=== PATIENT | male | born 1960 | race Caucasian/White ===

== ENCOUNTER 2021-05-01 09:15 | Emergency (ER) | payer OTHER ==
[~2021-05-01] VITALS: Ht 165.1 cm; Wt 88.5 kg
[2021-05-01 09:15] VITALS: BP_SYST 123
--- NOTE | 2021-05-01 09:15 | NUR ---
BROUGHT BACK TO BED #8 AND TRIAGED. REPORT GIVEN TO MONIK
--- NOTE | 2021-05-01 09:17 | NUR ---
ER DR. ISLAS AT THE BEDSIDE EXAMINING PT
--- NOTE | 2021-05-01 09:20 | NUR ---
PT BIB DAUGHTER FROM HOME C/O SOB SINCE YESTERDAY. REPORTS HX OF CHF, A-FIB, DM. STATES HE HAS BEEN USING AN RX INHALER AT HOME BUT STILL FEELS SOB. PT PRESENTS BREATHING AT A NORMAL RATE, UNLABORED, DENIES COUGH. PULSE FLUXUATING BETWEEM 98-125 BPM. OTHER V/S STABLE. PT IS AAOX4, AMBULATORY
[2021-05-01] MEDS ORDERED: DILTIAZEM HCL 25 MG/5 ML VIAL IVP ONE (09:30)
[2021-05-01] MEDS ORDERED: DILTIAZEM HCL 60 MG TABLET PO ONE (09:30)
--- NOTE | 2021-05-01 09:40 | NUR ---
# 20 gauge angiocath placed to L WRIST. Use of asceptic technique. Opsite placed over site. Blood return noted. Flushed with 10 cc of normal saline. No evidence of infiltration noted. Patient tolerated well.
[2021-05-01 10:15] LABS: BASOPHILS % (AUTO) 0.5 % (0.0-2.0); EOSINOPHILS # (AUTO) 0.2 K/uL (0.0-0.4); EOSINOPHILS % (AUTO) 2.8 % (0.0-4.0); HEMATOCRIT 48.9 % (36-54); HEMOGLOBIN 16.8 g/dL (14.0-18.0); LYMPHOCYTES # (AUTO) 2.5 K/uL (1.0-5.5); LYMPHOCYTES % (AUTO) 36.9 % (20.5-51.5); MEAN CORPUSCULAR HEMOGLOBIN 31 pg (27-31); MEAN CORPUSCULAR HGB CONC 34 % (32-36); MEAN CORPUSCULAR VOLUME 90 fL (79.0-98.0); MONOCYTES # (AUTO) 0.6 K/uL (0.0-1.0); MONOCYTES % (AUTO) 8.3 % (1.7-9.3); NEUTROPHILS # (AUTO) 3.4 K/uL (1.8-7.7); NEUTROPHILS % (AUTO) 51.5 % (40.0-70.0); PLATELET COUNT (AUTO) 197 K/uL (130-430); RED BLOOD CELL COUNT(AUTO) 5.43 MIL/uL (4.2-6.2); RED CELL DISTRIBUTION WIDTH 13.6 % (9.0-15.0); WHITE BLOOD COUNT (AUTO) 6.7 K/uL (4.8-10.8)
[2021-05-01 10:16] LABS: CALCIUM 9.3 mg/dL (8.4-11.0); CREATININE 1.55 mg/dL (0.55-1.30); POTASSIUM 5.1 mmol/L (3.5-5.1)
--- NOTE | 2021-05-01 10:20 | NUR ---
PT SITTING UP IN BED, AWAKE, ALERT, V/S STABLE, NO DISTRESS NOTED
[2021-05-01 10:22] LABS: ALBUMIN 3.8 g/dL (3.4-4.8)
[2021-05-01 10:27] LABS: PROTHROMBIN TIME 10.9 SECS (9.5-12.5)
[2021-05-01 11:16] VITALS: BP_SYST 107
[2021-05-02] MEDS ORDERED: DILT120C89 PO (11:05)
== END 2021-05-01 11:16 | disposition home or self-care (01) ==
LOC: SED 09:15
DX: I48.20 Chronic atrial fibrillation, unspecified (principal)
CPT/HCPCS: 36415; 71045; 80053; 83880; 84484; 85025; 85610; 85730; 93005; 96374; 99285; J3490

== ENCOUNTER 2021-05-02 08:54 | Emergency (ER) | payer OTHER ==
[~2021-05-02] VITALS: Ht 167.6 cm; Wt 88.5 kg
[2021-05-02 09:00] VITALS: BP_SYST 127
[2021-05-02] MEDS ORDERED: DILTIAZEM HCL 180 MG CAP.SR.24H PO ONE (09:15)
[2021-05-02] MEDS ORDERED: DILTIAZEM HCL 180 MG CAP.SR.24H PO SCH (09:15)
[2021-05-02] MEDS ORDERED: DILTIAZEM HCL 25 MG/5 ML VIAL IVP ONE (09:15)
[2021-05-02 09:22] LABS: BASOPHILS % (AUTO) 0.5 % (0.0-2.0); EOSINOPHILS # (AUTO) 0.2 K/uL (0.0-0.4); HEMATOCRIT 46.9 % (36-54); HEMOGLOBIN 16.1 g/dL (14.0-18.0); LYMPHOCYTES # (AUTO) 2.5 K/uL (1.0-5.5); LYMPHOCYTES % (AUTO) 36.6 % (20.5-51.5); MEAN CORPUSCULAR HEMOGLOBIN 31 pg (27-31); MEAN CORPUSCULAR HGB CONC 34 % (32-36); MEAN CORPUSCULAR VOLUME 90 fL (79.0-98.0); MONOCYTES # (AUTO) 0.5 K/uL (0.0-1.0); MONOCYTES % (AUTO) 7.7 % (1.7-9.3); NEUTROPHILS # (AUTO) 3.6 K/uL (1.8-7.7); NEUTROPHILS % (AUTO) 52.2 % (40.0-70.0); PLATELET COUNT (AUTO) 188 K/uL (130-430); RED BLOOD CELL COUNT(AUTO) 5.21 MIL/uL (4.2-6.2); RED CELL DISTRIBUTION WIDTH 13.7 % (9.0-15.0); WHITE BLOOD COUNT (AUTO) 6.8 K/uL (4.8-10.8)
[2021-05-02 09:40] LABS: CALCIUM 8.7 mg/dL (8.4-11.0); CREATININE 1.32 mg/dL (0.55-1.30); POTASSIUM 4.2 mmol/L (3.5-5.1)
[2021-05-02 09:45] LABS: ALBUMIN 3.7 g/dL (3.4-4.8); TOTAL BILIRUBIN 1.1 mg/dL (0.0-1.0)
[2021-05-02] MEDS ORDERED: DILT120C89 PO (11:05)
[2021-05-02 11:17] VITALS: BP_SYST 114
[2021-05-03] MEDS ORDERED: DILTIAZEM HCL 180 MG CAP.SR.24H PO SCH (09:00)
== END 2021-05-02 11:18 | disposition home or self-care (01) ==
LOC: SED 08:54
DX: I48.91 Unspecified atrial fibrillation (principal); E11.9 Type 2 diabetes mellitus without complications; Z79.899 Other long term (current) drug therapy
CPT/HCPCS: 36415; 71045; 80053; 83880; 84484; 85025; 93005; 96374; 99285; J3490

== ENCOUNTER 2021-05-04 00:05 | Inpatient (IN) | payer MEDICAID, SELFPAY ==
[~2021-05-04] VITALS: Ht 167.6 cm; Wt 94.0 kg
[~2021-05-04 00:05] MED LIST: DILT120C89 PO
[2021-05-04 00:15] VITALS: BP_SYST 118
--- NOTE | 2021-05-04 00:30 | NUR ---
Placed in room 6 . Placed on cafeteria monitor, blood pressure machine and pulse oximeter. To gown for exam. Side rails up. Report given to GENE EID.
--- NOTE | 2021-05-04 01:10 | NUR ---
Assumed total care of patient. Patient AAO x4 from home c/o shortness of breath x3 days and nausea. Patient seen here recently in ER and diagnosed with A. Fibb and discharged with prescription of Cardizem. Patient presents with O2 saturation of 93-97% on room air. 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 Patient denies chest pain, blurry vision, lightheadedness. Will continue to monitor.
--- NOTE | 2021-05-04 01:15 | NUR ---
Covid swab collected and sent to lab.
--- NOTE | 2021-05-04 01:17 | NUR ---
# 20 gauge angiocath placed to left forearm. Use of asceptic technique. Opsite placed over site. Blood return noted. Blood for lab drawn from site. Flushed with 10 cc of normal saline. No evidence of infiltration noted. Patient tolerated well.
[2021-05-04] MEDS ORDERED: SPIR25TA PO (01:22)
[2021-05-04] MEDS ORDERED: COR12.5 PO (01:22)
[2021-05-04] MEDS ORDERED: LOSA25TA3 PO (01:22)
[2021-05-04] MEDS ORDERED: GLYB5TAB7 PO (01:22)
[2021-05-04] MEDS ORDERED: LIP20 PO (01:22)
[2021-05-04] MEDS ORDERED: MAGN400T10 PO (01:22)
[2021-05-04] MEDS ORDERED: FURO-149 PO (01:22)
[2021-05-04] MEDS ORDERED: APIX5TAB PO (01:23)
[2021-05-04] MEDS ORDERED: METF-518 PO (01:23)
--- NOTE | 2021-05-04 01:23 | NUR ---
Medication reconciliation completed with information provided by patient. Any prior medication reconciliation on file was reviewed and corrected.
[2021-05-04 01:35] LABS: BASOPHILS # (AUTO) 0.1 K/uL (0.0-0.2); EOSINOPHILS # (AUTO) 0.3 K/uL (0.0-0.4); EOSINOPHILS % (AUTO) 4.4 % (0.0-4.0); HEMATOCRIT 46.9 % (36-54); HEMOGLOBIN 15.9 g/dL (14.0-18.0); LYMPHOCYTES # (AUTO) 2.9 K/uL (1.0-5.5); LYMPHOCYTES % (AUTO) 39.8 % (20.5-51.5); MEAN CORPUSCULAR HEMOGLOBIN 31 pg (27-31); MEAN CORPUSCULAR HGB CONC 34 % (32-36); MEAN CORPUSCULAR VOLUME 91 fL (79.0-98.0); MONOCYTES # (AUTO) 0.7 K/uL (0.0-1.0); MONOCYTES % (AUTO) 9.2 % (1.7-9.3); NEUTROPHILS # (AUTO) 3.4 K/uL (1.8-7.7); NEUTROPHILS % (AUTO) 45.6 % (40.0-70.0); PLATELET COUNT (AUTO) 195 K/uL (130-430); RED BLOOD CELL COUNT(AUTO) 5.17 MIL/uL (4.2-6.2); RED CELL DISTRIBUTION WIDTH 13.7 % (9.0-15.0); WHITE BLOOD COUNT (AUTO) 7.4 K/uL (4.8-10.8)
[2021-05-04 01:41] LABS: CREATININE 1.35 mg/dL (0.55-1.30); POTASSIUM 4.3 mmol/L (3.5-5.1)
[2021-05-04 01:49] LABS: ALBUMIN 3.5 g/dL (3.4-4.8); TOTAL BILIRUBIN 0.7 mg/dL (0.0-1.0)
--- NOTE | 2021-05-04 02:10 | NUR ---
ER Dr. Conway at bedside examining patient.
--- NOTE | 2021-05-04 02:11 | NUR ---
Patient's code status is FULL CODE paperwork completed and placed in chart.
--- NOTE | 2021-05-04 02:47 | NUR ---
Received admit orders from Dr. Vaughn
--- NOTE | 2021-05-04 02:49 | NUR ---
Patient will be admitted to care of Dr. Vaughn. Admitted to TELE unit. Will go to room pending. Belongings list completed. Complete and up to date summary report printed. SBAR report to be given at bedside with opportunity for questions.
[2021-05-04] MEDS ORDERED: ASPIRIN 325 MG TABLET PO ONE (03:00)
[2021-05-04] MEDS ORDERED: ALBUTEROL SULFATE 0.083% 2.5 MG/3 ML VIAL.NEB INH PRN (03:00)
[2021-05-04] MEDS ORDERED: ASPIRIN 325 MG TABLET ONE (03:09)
--- NOTE | 2021-05-04 03:57 | NUR ---
Patient is going to room 134B
--- NOTE | 2021-05-04 04:03 | NUR ---
Transfer to TELE via ACLS protocol. Licensed nurse present. IV present no signs or symptoms of infiltration.
[2021-05-04] MEDS ORDERED: LORazepam 1 MG TABLET ONE (04:12)
[2021-05-04] MEDS ORDERED: LORazepam 1 MG TABLET PO ONE (04:15)
--- NOTE | 2021-05-04 04:17 | NUR ---
ADMIT NOTE Received pt from ER to the floor with a diagnosis of chf. Admission process initiated. patient oriented to pain management, safety and call light-teach back done.
--- NOTE | 2021-05-04 04:21 | NUR ---
CONSULT: CONSULT CALLED FOR DR. LYNNE I SPOKE WITH NAMITA BROTHERS REASON FOR CONSULT: A FIB REQUESTING CONSULT: DR. ABREU MACHINE OR MACHINERY MECHANIC PHONE NUMBER: [phone]
[2021-05-04 04:24] VITALS: BP_SYST 112
[2021-05-04] MEDS ORDERED: FLU VACC QS2021-22(6MOS UP)/PF 0.5 ML/SYR SYRINGE I.M. PRN (04:45)
--- NOTE | 2021-05-04 05:12 | NUR ---
initial notes: Pt is AAO x 4, complain of sob cause by A-fib. no pain, not distress, stable vital sign. brp with steady gait. iv lock to left fore arm intact and patent. discuss to pt plan of care, orient to room and call light. pt verbalized understanding. needs attended, call light in reach, side rails up. low bed position. will continue to monitor.
[2021-05-04 05:42] VITALS: BP_SYST 112
--- NOTE | 2021-05-04 06:56 | NUR ---
closing: pt is sleeping on his side. no sign of sob and distress. stable on monitor. call light with the pt. low bed position, side rails up x 2. sbar reporting given to am rn.
[2021-05-04 08:00] VITALS: BP_SYST 113
--- NOTE | 2021-05-04 08:00 | NUR ---
A/OX4 c/o SOB, but v/s stable. No pain, not distress, stable vital sign. On room air, gait steady. iv at left fore arm intact and patent. Call light in place, bed locked at the lowest position, will continue to monitor.
--- NOTE | 2021-05-04 08:35 | NUR ---
Patient eats 75% of breakfast. Tolerated without distress.
--- NOTE | 2021-05-04 08:53 | NUR ---
INFORMED PITO EID THAT THE PATIENT HAS BEEN OFF THE TELE MONITOR SINCE 811
[2021-05-04] MEDS: MAGNESIUM OXIDE 400 MG TABLET PO SCH (09:01)
[2021-05-04] MEDS: DILTIAZEM HCL 120 MG CAP.SR.24H PO SCH (09:02)
[2021-05-04] MEDS: glyBURIDE 5 MG TABLET PO SCH ×2 (09:02→18:48)
[2021-05-04] MEDS: CARVEDILOL 12.5 MG TABLET (COREG) PO SCH ×2 (09:03→21:16)
[2021-05-04] MEDS: LOSARTAN POTASSIUM 25 MG TABLET PO SCH (09:03)
[2021-05-04] MEDS: SPIRONOLACTONE 25 MG TABLET (ALDACTONE) PO SCH (09:03)
[2021-05-04] MEDS: FUROSEMIDE 20 MG/2 ML VIAL IVP SCH ×2 (09:04→21:15)
--- NOTE | 2021-05-04 12:00 | NUR ---
Patient is eating lunch at this time. Tolerated without distress.
[2021-05-04 13:42] LABS: BILIRUBIN,URINE NEGATIVE (NEGATIVE); CLARITY/URINE CLEAR (CLEAR); COLOR,URINE YELLOW (YELLOW); GLUCOSE,URINE NEGATIVE (NEGATIVE); KETONES,URINE NEGATIVE (NEGATIVE); LEUKOCYTE ESTERASE ,URINE NEGATIVE (NEGATIVE); NITRITE, URINE NEGATIVE (NEGATIVE); PROTEIN URINE NEGATIVE (NEGATIVE)
[2021-05-04 13:52] LABS: BLOOD, URINE TRACE (NEGATIVE)
[2021-05-04 13:53] LABS: BACTERIA,URINE RARE /HPF (None Seen); RBC,URINE 0-3 /HPF (0-3); WBC,URINE NONE SEEN /HPF (0-3)
[2021-05-04 13:56] LABS: BARBITURATE, URINE NEGATIVE (NEG <=200); BENZODIAZEPINE, URINE POSITIVE (NEG <=150); CANNABINOID, URINE NEGATIVE (NEG <=50); COCAINE, URINE NEGATIVE (NEG <=150); METHAMPHETAMINES SCREEN,URINE NEGATIVE (NEG <=500); OPIATE, URINE NEGATIVE (NEG <=100); PHENCYCLIDINE SCREEN,URINE NEGATIVE (NEG <=25); UR TRICYCLIC ANTIDEPRESSANTS NEGATIVE (NEG <=300); URINE AMPHETAMINE NEGATIVE (NEG <=500); URINE METHADONE NEGATIVE (NEG <=200); URINE OXYCODONE SCREEN NEGATIVE (NEG <=100); URINE PROPOXYPHENE SCREEN NEGATIVE (NEG <=300)
[2021-05-04 21:00] VITALS: BP_SYST 114
[2021-05-04] MEDS ORDERED: ACETAMINOPHEN 325 MG TABLET PO ONE (21:30)
--- NOTE | 2021-05-04 22:09 | NUR ---
TYLENOL 650 MG PO administer for GENERAL MILD PAIN comfort measures also helpful .
[2021-05-05 02:00] VITALS: BP_SYST 135
--- NOTE | 2021-05-05 03:59 | NUR ---
HOURLY ROUNDING patient is resting call irby given to patient chest movement symmetrical also unlabored .
--- NOTE | 2021-05-05 05:45 | NUR ---
TYLENOL 650 MG po helpful for general aches & pains , off loading with pillows used & tolerated .
[2021-05-05 07:58] VITALS: BP_SYST 113
[2021-05-05] MEDS: MAGNESIUM OXIDE 400 MG TABLET PO SCH (08:03)
[2021-05-05] MEDS: FUROSEMIDE 20 MG/2 ML VIAL IVP SCH (08:03)
[2021-05-05] MEDS: SPIRONOLACTONE 25 MG TABLET (ALDACTONE) PO SCH (08:04)
[2021-05-05] MEDS: LOSARTAN POTASSIUM 25 MG TABLET PO SCH (08:05)
[2021-05-05] MEDS: glyBURIDE 5 MG TABLET PO SCH (08:05)
[2021-05-05] MEDS: CARVEDILOL 12.5 MG TABLET (COREG) PO SCH (08:05)
[2021-05-05] MEDS: DILTIAZEM HCL 120 MG CAP.SR.24H PO SCH (09:00)
--- NOTE | 2021-05-05 10:57 | NUR ---
MD APPOINTMENT APPOINTMENT MADE WITH DR LYNNE ON MAY 12, 2021 AT [phone]
[2021-05-05 11:01] VITALS: BP_SYST 113
--- NOTE | 2021-05-05 11:30 | NUR ---
D/C Patient Patient given medication reconciliation form and D/C instructions. Exit Care provided. Patient verbalized understanding. MD discussed with patient the results and treatment provided. Ambulatory with steady gait for discharge to home. Patient in stable condition, ID band removed. IV catheter removed, intact and dressing applied, no active bleeding. Rx of Spironolactone, Coreg, Zaroxolyn, Losartan is given. Patient educated on pain management. All belongings sent with patient.
== END 2021-05-05 11:30 | disposition home or self-care (01) | DRG 194 ==
LOC: SED 00:05 → STU 02:47
PROVIDERS: ADMIT Internal Medicine Hospice and Palliative Medicine; ATTEND Internal Medicine Hospice and Palliative Medicine
DX: I11.0 Hypertensive heart disease with heart failure (principal); I42.9 Cardiomyopathy, unspecified; I48.20 Chronic atrial fibrillation, unspecified; F15.10 Other stimulant abuse, uncomplicated; F10.20 Alcohol dependence, uncomplicated; Y90.9 Presence of alcohol in blood, level not specified; I25.10 Atherosclerotic heart disease of native coronary artery without angina pectoris; Z20.822 Contact with and (suspected) exposure to COVID-19; E11.9 Type 2 diabetes mellitus without complications; F17.200 Nicotine dependence, unspecified, uncomplicated; I25.2 Old myocardial infarction; I50.43 Acute on chronic combined systolic (congestive) and diastolic (congestive) heart failure
CPT/HCPCS: 36415; 71045; 80053; 80307; 81000; 82962; 83880; 84484; 85025; 85379; 93005; 93306; 99285; G0378; J1940